=== PATIENT | male | born 2005 | race Caucasian/White ===

== ENCOUNTER 2025-03-09 01:37 | Emergency (ER) | payer SELFPAY ==
[~2025-03-09] VITALS: Ht 177.8 cm; Wt 123.0 kg
[2025-03-09 01:43] VITALS: O2SAT 97
[2025-03-09] MEDS: ONDANSETRON HCL 4MG/2ML INJ IV ONE (02:15)
[2025-03-09 02:24] LABS: BASOPHILS % 0.6 % (0.0-2.0); EOSINOPHILS % 3.6 % (0.0-5.0); HEMATOCRIT. 45.0 % (42.0-52.0); HEMOGLOBIN. 15.9 g/dL (14.0-18.0); LYMPHOCYTES % 40.8 % (20.0-50.0); MEAN PLATELET VOLUME 8.8 fl (7.4-10.4); MONOCYTES % 4.3 % (2.0-8.0); NEUTROPHILS % 50.7 % (40.0-76.0); PLATELET 191 x1000/uL (130-400); RED BLOOD CELL COUNT 5.09 mill/uL (4.7-6.1); RED CELL DISTRIBUTION WIDTH 12.8 % (11.6-14.6)
[2025-03-09 02:38] LABS: CREATININE 0.9 mg/dL (0.6-1.3); ETHANOL BLOOD 173 mg/dL (<10); UREA NITROGEN BLOOD 16 mg/dL (9-23)
[2025-03-09 05:10] VITALS: BP 117/64; PULSE 82; RESP 16; TEMP 36.5; O2SAT 97
== END 2025-03-09 05:14 | disposition home or self-care (01) ==
LOC: ER 01:37
DX: T51.0X1A Toxic effect of ethanol, accidental (unintentional), initial encounter (principal); F10.129 Alcohol abuse with intoxication, unspecified; Y90.6 Blood alcohol level of 120-199 mg/100 ml; Y92.89 Other specified places as the place of occurrence of the external cause
CPT/HCPCS: 36415; 80048; 80320; 85025; 99283; G0480